=== PATIENT | female | born 1955 | race Caucasian/White ===

== ENCOUNTER → 2018-03-14 10:25 | Outpatient (CLI) | payer OTHER, MEDICAID, SELFPAY ==
[2018-03-14 12:04] LABS: TSH w/ Reflex to FT4 0.63 uIU/mL (0.47-4.68)
== END ==
PROVIDERS: PCP Family Medicine; Visit Provider Family Medicine
DX: Z86.39 Personal history of other endocrine, nutritional and metabolic disease (principal)
CPT/HCPCS: 36415; 84443

== ENCOUNTER → 2019-02-18 07:02 | Outpatient (CLI) | payer OTHER, SELFPAY ==
[2019-02-18 09:36] LABS: Rubella Antibody IgG 73.6 IU/mL (>15)
[2019-03-04 12:55] LABS: Rubeola Measles IgG > 300.00
== END ==
PROVIDERS: PCP Family Medicine; Visit Provider Family Medicine
DX: Z11.59 Encounter for screening for other viral diseases (principal)
CPT/HCPCS: 36415; 86735; 86762; 86765

== ENCOUNTER → 2019-06-11 15:48 | Outpatient (CLI) | payer OTHER, SELFPAY ==
--- NOTE | 2019-06-11 15:51 | DI.RAD.S_ITS ---
PROCEDURE: XR CHEST 2V INDICATIONS: pain with deep breathing/coughing, recent URI,r/o pneumonia TECHNIQUE: 2 views of the chest were acquired. COMPARISON: None. FINDINGS: Surgical changes and devices: None. Lungs and pleura: Lungs are abnormal with large lung volumes and mild interstitial prominence likely reflecting prior smoking history. No pleural effusions or pneumothorax. Mediastinum: Mediastinal contours are normal. Heart size is normal. Bones and chest wall: No suspicious bony abnormalities. Soft tissues appear unremarkable. IMPRESSION: COPD, no pneumonia found. No mass lesion identified. Dictated by: Artemio Zamorano M.D. on 06/11/2019 at 16:20 Approved by: Artemio Zamorano M.D. on 06/11/2019 at 16:20
== END ==
PROVIDERS: Family Provider Family Medicine; PCP Family Medicine; Visit Provider Physician Assistant
DX: R10.13 Epigastric pain (principal); R07.1 Chest pain on breathing; R05 Cough; J44.9 Chronic obstructive pulmonary disease, unspecified
CPT/HCPCS: 71046

== ENCOUNTER → 2020-10-14 15:50 | Outpatient (CLI) | payer OTHER, SELFPAY ==
--- NOTE | 2020-10-14 15:55 | DI.MG.S_ITS ---
BILATERAL DIGITAL SCREENING MAMMOGRAM 3D/2D WITH CAD: 10/14/2020 CLINICAL: Routine screening. Baseline exam. Family history of breast cancer. No prior exams were available for comparison. The tissue of both breasts is heterogeneously dense. This may lower the sensitivity of mammography. Current study was also evaluated with a Computer Aided Detection (CAD) system. There are benign vascular calcifications in both breasts. No significant masses, calcifications, or other findings are seen in either breast. IMPRESSION: BENIGN There is no mammographic evidence of malignancy. A 1 year screening mammogram is recommended. This exam was interpreted at Station ID: [id number]. NOTE: For mammograms, a report in lay terms will be sent to the patient. Approximately 15% of breast malignancies will not be visualized mammographically. In the management of a palpable breast mass, a negative mammogram must not discourage biopsy of a clinically suspicious lesion. Electronically Signed By: Poncho hunter/jorge:10/14/2020 16:23:27 letter sent: Normal Exam ACR BI-RADS Category 2: Benign Finding(s) 3342F
== END ==
PROVIDERS: Family Provider Family Medicine; PCP Family Medicine; Referring Provider Family Medicine; Visit Provider Family Medicine
DX: Z12.31 Encounter for screening mammogram for malignant neoplasm of breast (principal); Z80.3 Family history of malignant neoplasm of breast
CPT/HCPCS: 77063; 77067

== ENCOUNTER → 2022-06-02 06:59 | Outpatient (CLI) | payer OTHER, SELFPAY ==
[2022-06-02 08:45] LABS: Alanine Aminotransferase 20 IU/L (<35); Albumin Globulin Ratio 1.3 (1.0-2.8); Alkaline Phosphatase 73 U/L (38-126); Aspartate Aminotransferase 25 IU/L (14-36); BUN Creatinine Ratio 12.7 (6-22); Bilirubin Total 0.6 mg/dL (0.2-1.3); Blood Urea Nitrogen 7 mg/dL (7-17); Carbon Dioxide 32 mmol/L (22-32); Chloride 103 mmol/L (98-107); Cholesterol 177 mg/dL (140-199); Estimated Glomerular Filt Rate > 60 mL/min (>60); Glucose 89 mg/dL (80-110); HDL Cholesterol 72 mg/dL (40-60); HEMOLYSIS < 15 (0-50); LDL Cholesterol Calculated 94 mg/dL (<100); Potassium 3.7 mmol/L (3.4-5.1); Sodium 140 mmol/L (137-145); Triglycerides 54 mg/dL (35-150)
[2022-06-02 08:54] LABS: Free T3, Triiodothyronine Free 3.76 pg/mL (2.77-5.27); Free T4, Direct Thyroxine 1.35 ng/dL (0.78-2.19)
[2022-06-02 09:08] LABS: Thyroid Stimulating Hormone 1.65 uIU/mL (0.47-4.68)
[2022-06-03 09:09] LABS: Thyroid Peroxidase Antibodies <9 IU/mL (0-34)
[2022-06-03 20:36] LABS: Anti Thyroglobulin Antibody <1.0 IU/mL (0.0-0.9)
== END ==
PROVIDERS: Family Provider Family Medicine; PCP Family Medicine; Referring Provider Family Medicine; Visit Provider Family Medicine
DX: E03.9 Hypothyroidism, unspecified (principal); Z13.220 Encounter for screening for lipoid disorders
CPT/HCPCS: 36415; 80053; 80061; 84439; 84443; 84481; 86376; 86800

== ENCOUNTER → 2022-07-10 07:22 | Outpatient (CLI) | payer OTHER, SELFPAY ==
[2022-07-10 08:37] LABS: Influenza A - CEPHEID Flu A NEGATIVE (NEGATIVE); Influenza B - CEPHEID Flu B NEGATIVE (NEGATIVE); Respiratory Syncytial Virus Negative (Negative)
[2022-07-10 08:38] LABS: COVID-19 CEPHEID 4-PLEX PCR Negative (Negative)
== END ==
PROVIDERS: Family Provider Family Medicine; PCP Family Medicine; Visit Provider Nurse Practitioner Family
DX: J02.9 Acute pharyngitis, unspecified (principal); Z20.822 Contact with and (suspected) exposure to COVID-19
CPT/HCPCS: 0241U

== ENCOUNTER → 2022-10-05 11:49 | Outpatient (CLI) | payer OTHER, SELFPAY ==
--- NOTE | 2022-10-09 08:54 | P.PFT.S_ITS ---
Pulmonary Function Test Referral & Results Date Patient Seen: 10/05/22 Results: The spirometry demonstrates an FVC of 1.88 L which is 58% of predicted. The FEV1 was measured at 1.41 L which is 57% of predicted. The FEV1/FVC ratio was 75 which is 97% of predicted. Following the administration of bronchodilator there was no notable change. Lung volumes show an SVC of 1.85 L which is 61% of predicted. The diffusing capacity was measured at 19.75 which is 77% of predicted. My no h emoglobin The maximum voluntary ventilation was reduced Interpretation: This study demonstrates moderate obstructive lung disease based on reduction FEV1 although FEV1/FVC ratio is preserved. There is also no evidence of benefit following bronchodilator administration however shape a flow volume loop is suggestive of the presence of some degree of obstructive lung disease Lung volumes are also reduced suggesting the presence of moderate restrictive lung disease which may be the source of some of the abnormality in the FEV1 ab ove There is also mild reduction diffusing capacity suggesting disease at the capillary alveolar level Clinical correlation suggested
== END ==
PROVIDERS: Family Provider Family Medicine; PCP Family Medicine; Referring Provider Family Medicine; Visit Provider Family Medicine
DX: R05.9 Cough, unspecified (principal); J98.8 Other specified respiratory disorders
CPT/HCPCS: 94060; 94726; 94729

== ENCOUNTER → 2022-10-23 07:55 | Outpatient (CLI) | payer OTHER, SELFPAY ==
--- NOTE | 2022-10-23 07:56 | DI.ECHO.S_ITS ---
[place]---------+ [facility] +---------+ : : [address] : [address] : : : : [id number] : : : : Phone: [phone]+ Echocardiogram Report + + :Name: ZAIN GRULLON Study Date: 10/23/2022 Height: 64 in : :[facility] ReadingLocation: Weight: 126 lb : : Gender: Female BSA: 1.6 m2 : :: 1955 Age: 67 yrs BP: 167/84 mmHg: :Reason For Study: PERSISTENT COUGH AND PALIPTATION : :Ordering Physician: Promise HERNADEZformed By: Lynne Gallegos : :Referring: ESAU HERNADEZ : + + Interpretation Summary Normal left ventricle size with ejection fraction 65-70%. Mild mitral regurgitation. Mild to moderate tricuspid regurgitation. Procedure: A two-dimensional transthoracic echocardiogram with color flow and Doppler was performed. The study quality was technically adequate. There is no prior echocardiogram noted for this patient. The patient was in sinus rhythm with heart rates between 66-95 bpm during the exam. Left Ventricle: The left ventricle is normal in size and wall thickness. The ejection fraction is estimated to be 65-70%. There are no focal wall motion abnormalities. Right Ventricle: The right ventricle is normal in size and function. Atria: The left atrial size is normal. Right atrial size is normal. There is no Doppler evidence for an interatrial shunt. Mitral Valve: The mitral valve is normal in structure and function. There is mild mitral regurgitation. Aortic Valve: The aortic valve is trileaflet. The aortic valve opens well. There is no aortic valve stenosis. No aortic regurgitation is present. Tricuspid Valve: The tricuspid valve leaflets are thin and pliable. There is mild to moderate tricuspid regurgitation. Pulmonic Valve: The pulmonic valve leaflets are thin and pliable; valve motion is normal. There is trace pulmonic regurgitation. Great Vessels: The aortic root is normal size. The dimensions of the ascending aorta are normal. The IVC is of normal diameter and collapses greater than 50% with a sniff. This suggests a low right atrial pressure of 3 mm Hg. Pericardium/ Pleura There is no pericardial effusion. There is no pleural effusion. MMode/2D Measurements & Calculations LVIDd: 3.8 cm LVOT diam: 1.9 cm LVIDs: 2.2 cm Ao root diam: 3.1 cm FS: 42.1 % asc Aorta Diam: 3.4 cm EPSS: 0.59 cm Ao Arch Diam (Prox Trans): 2.3 cm IVSd: 0.84 cm LVPWd: 0.74 cm LV luis. diameter/BSA (cm/m^2): 2.4 LV sys. diameter/BSA (cm/m^2): 1.4 LA A2 area: 18.1 cm2 RA long axis: 4.4 cm LA A4 area: 13.0 cm2 RA area: 13.1 cm2 LA length (vol): 4.3 cm RA vol: 33.2 ml LA vol: 45.9 ml RA : 20.7 ml/m2 LA vol index: 28.5 ml/m2 IVC diam: 1.5 cm RVD1 (basal): 2.8 cm RVD2 (mid): 2.1 cm TAPSE: 2.1 cm Doppler Measurements & Calculations Ao V2 max: 111.1 cm/sec LVOT Max Darren: 100.4 cm/sec Ao V2 mean: 79.2 cm/sec LV V1 max P.0 mmHg Ao max P.9 mmHg LV V1 VTI: 21.1 cm Ao mean P.7 mmHg NORAH(I,D): 2.9 cm2 Ao V2 VTI: 21.4 cm NORAH(V,D): 2.7 cm2 sev ratio: 0.99 NORAH indexed to BSA (cm^2/m^2): 1.8 MV E max darren: 69.3 cm/sec TR max darren: 228.4 cm/sec MV A max darren: 92.3 cm/sec TR max P.9 mmHg MV E/A: 0.75 PA V2 max: 89.0 cm/sec Med Peak E' Darren: 5.5 cm/sec PA V2 mean: 64.3 cm/sec E/E' med: 12.5 PA mean P.9 mmHg Lat Peak E' Darren: 9.0 cm/sec PA pr(Accel): 29.3 mmHg E/E' lat: 7.7 E/e' average: 10.1 MV dec time: 0.17 sec SV(LVOT): 61.8 ml Electronically signed by: Luna Sheffield on Reading Physician:10/23/2022 01:44 PM
== END ==
PROVIDERS: Family Provider Family Medicine; PCP Family Medicine; Referring Provider Family Medicine; Visit Provider Family Medicine
DX: I08.1 Rheumatic disorders of both mitral and tricuspid valves (principal); R05.9 Cough, unspecified; R00.2 Palpitations
CPT/HCPCS: 93306

== ENCOUNTER → 2022-12-26 09:14 | Outpatient (CLI) | payer OTHER, SELFPAY ==
--- NOTE | 2022-12-26 | DI.CT.S_ITS ---
PROCEDURE: CT CHEST WO CON INDICATIONS: Chronic cough TECHNIQUE: Noncontrast 5 mm thick sections acquired from the pulmonary apices to the posterior costophrenic angles. 1 mm lung window, 5 mm thick coronal and sagittal and 7 mm axial MIP reformats were then acquired. For radiation dose reduction, the following was used: automated exposure control, adjustment of mA and/or kV according to patient size. COMPARISON: None. FINDINGS: Image quality: Excellent. Lungs and pleura: No acute air space opacities. No pleural effusions or pneumothorax. Central and peripheral airways are patent and normal in caliber. Mediastinum: Heart size is normal. No pericardial effusion. No mediastinal adenopathy by size criteria. Thoracic aorta and central pulmonary arteries are normal in size. Esophagus is normal in caliber. No hiatal hernia. Bones and chest wall: Abdomen: Visualized upper abdominal solid organs and bowel loops appear normal in the absence of contrast. IMPRESSION: No acute abnormality of the chest. Dictated by: Gerhard Yap M.D. on 12/26/2022 at 14:59 Approved by: Gerhard Yap M.D. on 12/26/2022 at 15:02
== END ==
PROVIDERS: Family Provider Family Medicine; PCP Family Medicine; Referring Provider Internal Medicine Pulmonary Disease; Visit Provider Internal Medicine Pulmonary Disease
DX: R05.3 Chronic cough (principal)
CPT/HCPCS: 71250

== ENCOUNTER → 2023-03-19 07:26 | Outpatient (CLI) | payer OTHER, SELFPAY ==
--- NOTE | 2023-03-19 07:27 | DI.MG.S_ITS ---
BILATERAL DIGITAL SCREENING MAMMOGRAM 3D/2D WITH CAD: 03/19/2023 CLINICAL: Routine screening. Family history of breast cancer. Comparison is made to exams dated: 10/14/2020 mammogram and 01/22/2017 [facility]. Both breasts are heterogeneously dense, which may obscure small masses (category c / 51-75% glandular tissue). Current study was also evaluated with a Computer Aided Detection (CAD) system. There are benign vascular calcifications in both breasts. No significant masses, calcifications, or other findings are seen in either breast. There has been no significant interval change. IMPRESSION: BENIGN There is no mammographic evidence of malignancy. A 1 year screening mammogram is recommended. Based on the Tyrer Cuzick model (a risk assessment model) the patient's lifetime risk is 16.9% and her 10 year risk is 9.1%. According to the ACR, ACS, and NCCN guidelines, an annual breast MRI exam along with mammogram is recommended if the patient's lifetime risk is 20% or greater. This exam was interpreted at Station ID: [id number]. NOTE: For mammograms, a report in lay terms will be sent to the patient. Approximately 15% of breast malignancies will not be visualized mammographically. In the management of a palpable breast mass, a negative mammogram must not discourage biopsy of a clinically suspicious lesion. Electronically Signed By: Jaylin calderon/jorge:03/19/2023 08:46:45 letter sent: Normal Exam ACR BI-RADS Category 2: Benign Finding(s) 3342F
== END ==
PROVIDERS: Family Provider Family Medicine; PCP Family Medicine; Referring Provider Family Medicine; Visit Provider Family Medicine
DX: Z12.31 Encounter for screening mammogram for malignant neoplasm of breast (principal); Z80.3 Family history of malignant neoplasm of breast
CPT/HCPCS: 77063; 77067

== ENCOUNTER → 2024-03-12 07:33 | Outpatient (CLI) | payer OTHER, SELFPAY ==
[2024-03-12 10:12] LABS: Influenza A - CEPHEID Flu A NEGATIVE (NEGATIVE); Influenza B - CEPHEID Flu B NEGATIVE (NEGATIVE); Respiratory Syncytial Virus Negative (Negative)
[2024-03-12 10:19] LABS: COVID-19 CEPHEID 4-PLEX PCR Negative (Negative)
== END ==
PROVIDERS: Family Provider Family Medicine; PCP Family Medicine; Visit Provider Nurse Practitioner Family
DX: R05.1 Acute cough (principal)
CPT/HCPCS: 0241U

== ENCOUNTER → 2024-03-15 07:32 | Outpatient (CLI) | payer OTHER, SELFPAY ==
--- NOTE | 2024-03-15 07:33 | DI.RAD.S_ITS ---
PROCEDURE: XR CHEST 2V INDICATIONS: Cough TECHNIQUE: 2 views of the chest were acquired. COMPARISON: [facility], , XR CHEST 2V, 06/11/2019, 15:52. FINDINGS: Heart, mediastinum and pulmonary vascular: Heart is normal in size and configuration. Mediastinum is unremarkable. Pulmonary vascular is normal. Lungs: Clear Pleural spaces: Normal-no effusions or pneumothorax. Bones and soft tissues: Normal IMPRESSION: Normal chest. Dictated by: Kirk Magana M.D. on 03/17/2024 at 11:22 Approved by: Kirk Magana M.D. on 03/17/2024 at 11:23
== END ==
PROVIDERS: Family Provider Family Medicine; PCP Family Medicine; Referring Provider Nurse Practitioner Family; Visit Provider Nurse Practitioner Family
DX: R05.9 Cough, unspecified (principal)
CPT/HCPCS: 71046

== ENCOUNTER → 2024-10-10 07:06 | Outpatient (CLI) | payer OTHER, SELFPAY ==
[2024-10-10 07:52] LABS: Add Manual Diff / Slide Review NO; Basophils Absolute Auto 0 /uL (0-100); Basophils Percent Auto 0.3 % (0-2); Eosinophils Absolute Auto 0 /uL (0-450); Eosinophils Percent Auto 0.8 % (2-4); Hemoglobin 13.9 g/dL (12.0-16.0); Lymphocytes Absolute Auto 1500 /uL (1100-4500); Lymphocytes Percent Auto 29.9 % (25-40); Mean Corpuscular HGB Conc 33.8 % (30-36); Mean Corpuscular Volume 94.7 fL (80-100); Monocytes Absolute Auto 400 /uL (0-900); Monocytes Percent Auto 7.5 % (3-14); Neutrophils Absolute Auto 3000 /uL (1500-7000); Neutrophils Percent Auto 61.5 % (50-75); Platelet Count 219 X10^3/uL (150-400); Red Blood Cell Count 4.33 X10^6/uL (4.0-5.2); Red Cell Distribution Width 13.2 % (11.6-14.8); White Blood Cell Count 4.9 X10^3/uL (4.5-11.0)
[2024-10-10 08:09] LABS: Alanine Aminotransferase 17 IU/L (<35); Albumin 4.2 g/dL (3.5-5.0); Albumin Globulin Ratio 1.7 (1.0-2.8); Alkaline Phosphatase 61 U/L (38-126); Aspartate Aminotransferase 28 IU/L (14-36); Bilirubin Total 0.6 mg/dL (0.2-1.3); Blood Urea Nitrogen 11 mg/dL (7-17); Calcium 9.3 mg/dL (8.4-10.2); Carbon Dioxide 29 mmol/L (22-32); Chloride 102 mmol/L (98-107); Cholesterol 196 mg/dL (140-199); Estimated Glomerular Filt Rate > 60 mL/min (>60); Globulin 2.5 g/dL (1.7-4.1); Glucose 104 mg/dL (80-110); HDL Cholesterol 87 mg/dL (40-60); HEMOLYSIS 17 (0-50); LDL Cholesterol Calculated 99 mg/dL (<100); Potassium 3.7 mmol/L (3.4-5.1); Sodium 137 mmol/L (137-145); Total Protein 6.7 g/dL (6.3-8.2); Triglycerides 52 mg/dL (35-150)
[2024-10-10 08:39] LABS: TSH w/ Reflex to FT4 1.09 uIU/mL (0.47-4.68)
[2024-10-11 03:39] LABS: CRP, High Sensitivity 0.53 mg/L (0.00-3.00)
== END ==
PROVIDERS: Family Provider Family Medicine; PCP Family Medicine; Referring Provider Family Medicine; Visit Provider Family Medicine
DX: I10 Essential (primary) hypertension (principal); J43.9 Emphysema, unspecified; J98.4 Other disorders of lung; R53.83 Other fatigue; R05.3 Chronic cough
CPT/HCPCS: 36415; 80053; 80061; 84443; 85025; 86140

== ENCOUNTER → 2024-10-16 09:54 | Outpatient (CLI) | payer OTHER, SELFPAY | LOC: RESP 09:55 | PROVIDERS: Family Provider Family Medicine; PCP Family Medicine; Referring Provider Family Medicine; Visit Provider Family Medicine | DX: R05.3 Chronic cough (principal); I10 Essential (primary) hypertension; J43.9 Emphysema, unspecified; J98.4 Other disorders of lung; R53.83 Other fatigue; R94.2 Abnormal results of pulmonary function studies | CPT/HCPCS: 94060; 94726; 94729 ==

== ENCOUNTER → 2025-02-03 14:20 | Outpatient (CLI) | payer OTHER, SELFPAY | PROVIDERS: PCP Family Medicine; Referring Provider Family Medicine; Visit Provider Family Medicine | DX: Z12.11 Encounter for screening for malignant neoplasm of colon (principal) | CPT/HCPCS: 82274 ==